=== PATIENT | male | born 1995 | race Caucasian/White ===

== ENCOUNTER 2018-01-17 09:16 | Emergency (ER) | payer BC | END 2018-01-17 11:17 | disposition home or self-care (01) | LOC: EDBD 09:16 → D.ER 09:16 | DX: R55 Syncope and collapse (principal); S06.0X1A Concussion with loss of consciousness of 30 minutes or less, initial encounter; X58.XXXA Exposure to other specified factors, initial encounter; Y93.89 Activity, other specified; Y92.238 Other place in hospital as the place of occurrence of the external cause ==